=== PATIENT | female | born 1990 | race Caucasian/White ===

== ENCOUNTER 2025-02-07 07:52 | Outpatient (AMB) | payer OTHER, SELFPAY ==
--- OUTSIDE RECORDS SUMMARY | 2025-02-07 07:56 | XMS_ITS | Clinical Summary ---
Author Organization [address] Address [address] [place] [phone] Phone Care Team Providers Care Windows Migration Technician Name Role Phone Itzel Ford MD Primary Care Provider [phone] Allergies No known active allergies Medications Sronyx 0.1-20 mg-mcg per tabletIndications: Encounter for contraceptive management, unspecified type TAKE 1 TABLET BY MOUTH EVERY DAY 84 tablet 1 5 Active omeprazole OTC (PriLOSEC OTC) 20 mg EC tablet Take 1 tablet (20 mg total) by mouth 1 (one) time each day if needed. Do not crush, chew, or split. Active Active Problems Problem Noted Date Diagnosed Date Gestational hypertension 10/01/2023 Overview (10/06/2024): 09/30: 132/98 and 123/90 Pt scheduled for repeat at triage on 10/01, if elevated plan for prec labs Pre-ec precautions given Elevated bp on 11/03: prec labs good, pending ptn/creat ratio not yet done CBC, AST, ALT, creatinine and P/C ratio at diagnosis Repeat serum labs and P/C weekly Assess growth at time of diagnosis and Q4 weeks Weekly NST at diagnosis (if <32 weeks consider MFM consult) If blood pressures in severe range patient needs inpatient evaluation. Diagnose and treat as pre-eclampsia with severe features Deliver at 37 weeks BP check 1 week PP ASA 162 mg daily starting at 12 weeks in future pregnancies for pre-eclampsia prevention Order Referral to PCP 11/18 iol at 8am IUD strings lost 06/04/2023 Overview (10/06/2024): Pt had u/s in mar no iud present, no exray done once found out plan is xray after delivery Positive urine drug screen 05/21/2023 Overview (10/06/2024): +cocaine pos pn labs 08/05/2023 UDS neg Obesity affecting 05/20/2023 Overview (10/06/2024): BMI- 33.64 HgbA1C and 1 hour GTT at initial labs ASA 162mg at 12 weeks until delivery Detailed anatomy ultrasound Repeat GTT 24-28 weeks if early is normal BMI of 50 by 28wks transfer to [facility] DVT prophylaxis- Lovenox if CS and BMI >35 HSIL on Pap smear of cervix 04/02/2023 Overview (10/06/2024): Will schedule colpo per ASCCP guidelines-colpo scheduled for 06/11/23 Subclinical hyperthyroidism 09/24/2014 Overview (10/06/2024): TSH 0.35, nl t4 Consulted by dr morejon repeat lab 2nd trim 08/05/2023 TSH 1.49 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 Overview (10/06/2024): FOB declines testing Immunizations Immunization Administration Dates Next Due DTP 05/22/1996, 3,1991,08/27,1991 [id number] (Pentacel) 2mo to less than 5yo 1991,1991,1991 HPV, Quadrivalent 10/28/2007,06/27/2007,04/25/19 08 Hepatitis B Pediatric (Enger ix B; Recombivax HB) to less than 20 yo 07/07/1996,08/03/1995,04/14/1995 Influenza trivalent, 0.5mL, preservative free (Fluarix; FluLaval; Fluzone) ages 6mo and older (Afluria) 3 years and older 01/02/2013,02/17/2006 MMR, measles mumps and rubel la Live (Priorix; M-M-R II) 12mo and older 05/22/1996,07/30/1992 Meningococcal MCV4P 02/17/2006 OPV 05/22/1996, 3,1991,08/27,1991 PPD Test 06/11/2014 Td Tetanus diptheria (Tdvax) 7yo and older 11/17/2002 Tdap Tetanus diptheria acell ular pertussis (Boostrix; Adacel) 7yo and older 09/30/2023,02/15/2020,03/26/2015,02/01,02/17/2006 Varicella live (Varivax) 12m o and older 10/06/2010,01/22/2000 Surgical History Surgery Date Site/Laterality Comments SECTION 11/16/2023 PROCEDURE: HISTORICAL DELIVERY Medical History Medical History Date Comments Chlamydia contact, treated 2010,08/2012 DX:Ch lamydia contact, treated Subclinical hyperthyroidism DX:S ubclinical hyperthyroidism Cystic fibrosis carrier DX:Cysti c fibrosis carrier Family History Medical History Relation Name Comments Lymphoma Aunt maternal, decea sed Diabetes Father Hyperlipidemia Father Hypertension Father Other: Other Father Stent for block age in 2 arteries. Melanoma Maternal Grandfather living Alcohol abuse Maternal Grandmother Other cancer Mother Kidney, living Other cancer Mother's side multiple, grea t grandfather Other: heart issues Paternal Grandfather Diabetes Paternal Grandmother Breast cancer Neg Hx Cervical cancer Neg Hx Colon cancer Neg Hx Ovarian cancer Neg Hx Pancreatic cancer Neg Hx Prostate cancer Neg Hx Uterine cancer Neg Hx Relation Name Status Comments Aunt Brother Alive Father Alive Maternal Grandfather Alive Maternal Grandmother Mother Alive Mother's side Paternal Grandfather Paternal Grandmother Sister Alive Social History Tobacco Use Types Packs/Day Years Used Date Smoking Tobacco: Never Smokeless Tobacco: Never Tobacco Cessation:Counseling Given: Not Answered Alcohol Use Standard Drinks/Week Comments Not Currently 0 (1 standard drink = 0.6 oz pur e alcohol) Housing Instability Answer Date Recorde d Are you worried that in the next 2 months you may not have stable housing? No 10/08/2024 Food Access & Nutrition Answer Date Rec orded Do you have access to a vari ety of food including fruits and vegetables? Yes 10/08/2024 Access to Healthcare Answer Date Record ed Within the last 3 months, ho w many times did you visit the emergency department for your medical care? 0 10/08/2024 Health Literacy Answer Date Recorded How often do you need to hav e someone help you when you read instructions, pamphlets, or other written material from your doctor or pharmacy? Never 10/08/2024 Caregiver: How often do you need to have someone help you when you read instructions, pamphlets, or other written material from your doctor or pharmacy? Not on file 10/08/2024 Financial Risk Answer Date Recorded How hard is it for you to pa y for the very basics like food, housing, medical care, and air conditioning / heating? Not very hard 10/08/2024 Transportation Answer Date Recorded Has the lack of transportati on kept you from meetings, work, or from getting things needed for daily living? No Has the lack of transportati on kept you from medical appointments or from getting medications? No 10/08/2024 Social Isolation Answer Date Recorded How often do you feel lonely or isolated from those around you? Sometimes 10/08/2024 Food Risk Answer Date Recorded Within the past 12 months we worried whether our food would run out before we got money to buy more. Never true 10/08/2024 Within the past 12 months th e food we bought just didn't last and we didn't have money to get more. Never true 10/08/2024 Dependent Care Answer Date Recorded Do you need help finding or paying for care for your loved ones. For example, salesperson children's shoes or elderly care for an older adult? No 10/08/2024 Education Answer Date Recorded Do you think completing more education or training, like finishing a GED, going to college, or learning a trade, would be helpful for you? No 10/08/2024 Employment and Income Answer Date Recor ded During the last four weeks, have you been actively looking for work? No 10/08/2024 Living Situation Answer Date Recorded What is your living situation? Unrecognized valu e 10/08/2024 Comments No Sex and Gender Information Value Date Recorded Sex Assigned at Female 08/29/2024 2:04 PM EDT Legal Sex Female 3:07 PM EST Gender Identity Female 08/29/2024 2:04 PM EDT Sexual Orientation Straight 08/29/2024 2: 04 PM EDT Obstetrics History Para Term AB IAB SAB Ectopic Multiple Livin g Live Births 4 4 4 Date Outcome GA Total Labor Labor/2nd/3rd Weight Sex Type Anes PTL Angelique A1 A5 Name Clin Term Term Term Term Last Filed Vital Signs Vital Sign Reading Time Taken Comments Blood Pressure 120/87 10/09/2024 2:05 PM EDT aut o Pulse 89 10/09/2024 2:05 PM EDT Temperature - - Respiratory Rate - - Oxygen Saturation - - Inhaled Oxygen Concentration - - Weight 96.4 kg (212 lb 9.6 oz) 10/09/2024 2:05 P M EDT Height 162.6 cm (5' 4 ) 10/09/2024 2:05 PM EDT Body Mass Index 36.49 10/09/2024 2:05 PM EDT Plan of Treatment Upcoming Encounters Date Type Department Care Team (Late st Contact Info) Description 03/26/2025 9:00 AM EST [facility] [address], [place] [phone] Itzel Ford MD [address] [place] [address] Health Maintenance Due Date Last Done Comments COVID-19 Vaccine ( season) 2024 09/04/2020, 08/14/2020 Influenza Vaccine (#1) 2024 , 01/02/2013, 02/17/2006 Social Influencers of Health Screening 10/08/2025 10/08/2024 Hypertension/CHF/CAD Annual BMP Blood Test 10/09/2025 10/09/2024 Cervical Cancer Screening: Pap Smear 03/26/2026 03/26/2023, 07/08/2018 Cholesterol Screening (Lipid Panel) 10/09/2029 10/09/2024, 09/17/2014 DTaP,Tdap,and Td Vaccines (12 - Td or Tdap) 09/29/2033 09/30/2023, 02/15/2020, 03/26/2015, Additional history exists RSV Immunization Adult Patients (1 - 1-dose 75+ series) 2066 HIB Vaccines Aged Out 1991, 10/13, 1991, Additional history exists No longer eligible based on patient's age to complete this topic IPV Vaccines Completed 05/22/1996, 10/13, 1991, Additional history exists MMR Vaccines Completed 05/22/1996, 07/30/1992 Hepatitis B Vaccines Completed 07/07/1996, 08/03/1995, 04/14/1995 Meningococcal ACWY Vaccine Aged Out 02/17/2006 N o longer eligible based on patient's age to complete this topic HPV Vaccines Completed 10/28/2007, 06/13, 04/25/2007 Varicella Vaccines Completed 10/06/2010, 01/22/2000 Depression Screening Completed 10/08/2024 Hepatitis C Screening Completed 10/09/2024 HIV Screening Discontinued Hepatitis A Vaccines Aged Out No long er eligible based on patient's age to complete this topic Meningococcal B Vaccine Aged Out No l onger eligible based on patient's age to complete this topic Pneumococcal Vaccine: Pediatrics (0 to 5 Years) and At-Risk Patients (6 to 49 Years) Aged Out No longer eligible based on patient's age to complete this topic RSV Immunization Patients Under 20 months Aged Out No longer eligible based on patient's age to complete this topic Procedures Procedure Name Priority Date/Time Associated Diagnosis Comments HEPATITIS C ANTIBODY Routine 10/09/2024 3:16 PM EDT Need for hepatitis C screening test COMPREHENSIVE METABOLIC PANEL Routine 10/09/2024 3:16 PM EDT Obesity (BMI 35.0-39.9 without comorbidity) Attention and concentration deficit LIPID PANEL WITH REFLEX TO DIRECT LDL Routine 10/09/2024 3:16 PM EDT Obesity (BMI 35.0-39.9 without comorbidity) PAP SMEAR Routine 03/26/2023 from Last 3 Months or Most Recently Relevant to Health Maintenance Results * Hepatitis C antibody (10/09/2024 3:16 PM EDT) [facility] Hepatitis C Antibody Negative Negative LAB CHEMISTRY METHOD 10/09/2024 9:34 PM EDT [facility] Blood Venous blood specimen / Unknown Venipuncture / Unknown 10/09/2024 3:16 PM EDT 10/09/2024 3:16 PM EDT us Itzel Ford MD LAB BLOOD ORDERABLES Final Res ult [facility] [address] [place] [address], [place] [phone] * (ABNORMAL) Lipid panel with reflex to direct LDL (10/09/2024 3:16 PM EDT) [facility] Cholesterol 192 0 - 200 mg/dL LAB CHEMISTRY METHOD 10/09/2024 7:44 PM EDT [facility] Triglycerides 340(H) 0 - 150 mg/dL LAB CHEMISTRY METHOD 10/09/2024 7:44 PM EDT [facility] HDL 32(L) >=40 mg/dL LAB CHEMISTRY METHOD 10/09/2024 7:44 PM EDT [facility] LDL Calculated 92 0 - 100 mg/dL LAB CHEMISTRY METHOD 10/09/2024 7:44 PM EDT [facility] VLDL Cholesterol Javad 68 mg/dL LAB CHEMISTRY METHOD 10/09/2024 7:44 PM EDT [facility] Non HDL Chol. (LDL+VLDL) 160(H) <145 mg/dL LAB CHEMISTRY METHOD 10/09/2024 7:44 PM EDT [facility] Chol/HDL Ratio 6.0(H) 0.0 - 4.4 LAB CHEMISTRY METHOD 10/09/2024 7:44 PM [facility] Blood Venous blood specimen / Unknown Venipuncture / Unknown 10/09/2024 3:16 PM EDT 10/09/2024 3:16 PM EDT us Itzel Ford MD LAB BLOOD ORDERABLES Final Res ult [facility] [address] [place] [address], [place] [phone] * Comprehensive metabolic panel (10/09/2024 3:16 PM EDT) Sodium 136 133 - 145 mmol/L LAB CHEMISTRY METHOD 10/09/2024 7:44 PM [facility] Potassium 4.4 3.5 - 5.5 mmol/L LAB CHEMISTRY METHOD 10/09/2024 7:44 PM [facility] Chloride 108 96 - 110 mmol/L LAB CHEMISTRY METHOD 10/09/2024 7:44 PM [facility] CO2 23 21 - 32 mmol/L LAB CHEMISTRY METHOD 10/09/2024 7:44 PM [facility] Anion Gap 5 3 - 11 LAB CHEMISTRY METHOD 10/09/2024 7:44 PM [facility] Glucose 89 70 - 100 mg/dL LAB CHEMISTRY METHOD 10/09/2024 7:44 PM [facility] BUN 9 5 - 25 mg/dL LAB CHEMISTRY METHOD 10/09/2024 7:44 PM [facility] Creatinine 0.87 0.50 - 1.10 mg/dL LAB CHEMISTRY METHOD 10/09/2024 7:44 PM [facility] eGFR 90 >=60 mL/min/1. 73m2 LAB CHEMISTRY METHOD 10/09/2024 7:44 PM [facility] Comment:Calculation based on the Chronic Kidney Disease Epidemiology Collaboration (CKD-EPI) equation refit without adjustment for race. BUN/Creatinine Ratio 10.3 LAB CHEMISTRY METHOD 10/09/2024 7:44 PM EDT [facility] Calcium 9.5 8.5 - 10.5 mg/dL LAB CHEMISTRY METHOD 10/09/2024 7:44 PM [facility] AST (SGOT) 16 10 - 42 unit/L LAB CHEMISTRY METHOD 10/09/2024 7:44 PM [facility] ALT (SGPT) 21 10 - 60 unit/L LAB CHEMISTRY METHOD 10/09/2024 7:44 PM [facility] Alkaline Phosphatase 71 42 - 121 unit/L LAB CHEMISTRY METHOD 10/09/2024 7:44 PM [facility] Total Protein 7.5 6.0 - 8.0 g/dL LAB CHEMISTRY METHOD 10/09/2024 7:44 PM [facility] Albumin 3.9 3.2 - 5.0 g/dL LAB CHEMISTRY METHOD 10/09/2024 7:44 PM [facility] Total Bilirubin 0.3 0.0 - 1.4 mg/dL LAB CHEMISTRY METHOD 10/09/2024 7:44 PM [facility] Blood Venous blood specimen / Unknown Venipuncture / Unknown 10/09/2024 3:16 PM EDT 10/09/2024 3:16 PM EDT us Itzel Ford MD LAB BLOOD ORDERABLES Final Res ult [facility] [address] [place] [address], * Pap smear (03/26/2023) 03/26/2023 Narrative HISTORICAL TESTING LAB RESULTING AGENCY - 04/02/2023 4:20 PM EST [id number] THINPREP PAP, IMAGED: HIGH-GRADE SQUAMOUS INTRAEPITHELIAL LESION (HSIL) . FLORES REIS M.D. , PATHOLOGIST (CASE ELECTRONICALLY SIGNED 04 02 2023) RESULT OF APTIMA HIGH RISK HPV ASSAY: HIGH RISK HPV: POSITIVE (SEROTYPES 16,18,31,33,35,39,45,51,52,56,58,59,66,68) RESULTS OF APTIMA HPV 16 AND 18/45 GENOTYPE ASSAY: HPV 16: NEGATIVE HPV 18/45: NEGATIVE COMPLETED ON 2023-03-30 ADEQUACY: SATISFACTORY ENDOCERVICAL/TRANSFORMATION ZONE COMPONENT PRESENT. SOURCE: THINPREP PAP HPV ANY DX: REFLEX 16 AND 18, CERVICAL, IMAGED CLINICAL INFORMATION: HPV ANY DIAGNOSIS. HORMONES IUD, PAP HX NEGATIVE, [Z01.419] Mayra Dexter [facility] CYTOLOGY ORDERABLES Fin al Result HISTORICAL TESTING LAB RESULTING AGENCY from Last 3 Months or Most Recently Relevant to Health Maintenance Insurance [facility] Care Teams Windows Migration Technician Relationship Specialty Start Date End Date Itzel Ford MD [address], [place] PCP - General Internal Medicine 08/29/24
--- NOTE | 2025-02-07 09:47 | MHC.OFFVISWM ---
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 BMI 35.9: Details: Start time: 9.33am, End time: 10.18am ?I spent 40 minutes speaking with the patient on the phone plus an additional 5 minutes reviewing and updating records for a total of 45 minutes HPI Comments Details: Previous weight loss efforts: (self diet and exercise), Keto diet Wakes up: 8am, Sleeps: 10pm Breakfast: skips Lunch: 11am-12pm (rice pack with tuna), junk food Dinner: 6pm (chicken, steak, vegetables, potatoes Snacks: 10am (bread, or fruit snack), 4pm (ice cream, chips), 8pm (same) Exercise: Gym daily Beverages: Coffee: occasionally, Tea: none, Soda: none, Energy Drink: Red Bull (regular: 1/d), Juice: Lemonade, Ice Tea, ETOH: none PFSH Medical History (Updated 02/07/25 @ 10:13 by Terry Tracy MD) Hypertension GERD (gastroesophageal reflux disease) BMI 35.0-35.9,adult Obesity Surgical History (Updated 11/23/24 @ 08:33 by Nini Isaac CMA) Hx of section Family History (Updated 11/23/24 @ 08:24 by Nini Isaac CMA) Mother FHx: kidney cancer Father Diabetes Hypertension High cholesterol H/O heart artery stent Son No problems noted. Son No problems noted. Son Asthma Daughter No problems noted. Social History (Updated 11/23/24 @ 08:24 by Nini Isaac CMA) Alcohol intake: never Patient Tobacco Use Status: Never used Tobacco Telehealth Telehealth Telehealth Platform: Telephone Location of provider rendering services: practice address Location of patient: address on file Patient Identification confirmed using: Name, : Yes Telehealth method: voice only Patient verbally consented to treatment: Yes Patient verbally consented to billing insurance company: Yes Patient informed of any privacy concerns related to visit: Yes Minutes spent on Phone/Video with Pt.: 45 Assessment & Plan Assessment & Plan (1) Obesity: Code(s): E66.9 - Obesity, unspecified Category: Medical Qualifiers: Obesity type: due to excess calories Obesity classification: adult class 2 (BMI 35 - 39.9) Serious obesity comorbidity presence: with serious comorbidity Body mass index: BMI 35.0-35.9 Qualified Code(s): E66.812 - Obesity, class 2; Z68.35 - Body mass index [BMI] 35.0-35.9, adult Plan: 1. As we discussed, based on your present BMI you are approximately 60lbs overweight. In my opinion, for any weight loss strategy to be successful should have a high probability to help you lose at least 50lbs out of 60lbs of the extra weight you carry. We discussed in detail the available therapeutic options: 1) our lifestyle intervention program that has an average weight loss of 10% in 3 months.?Some patients continue it for longer and have lost over 50lbs but this is not common. Our lifestyle program can be provided by me. I will provide you with a link to use the christiano if you choose to do so. We use protein shakes and protein bars to replace some of the meals of the day and cover your appetite better. We will decide together the exact combination. 2) Weight loss medications: these can be used in conjunction with our lifestyle program or you may choose to use them without following a lifestyle program from my program but your own. I will try the Zepbound injection (see below). There is also a self pay for the weight loss injections (if insurance does not approve) and the cost is $249 for the first month and $499 for any other month thereafter. These payments go to the drug company directly and not to us. As we discussed, this is not a termite exterminator helper solution, as most patients put all the weight back once they are off the medication. 3) We also discussed about the lap sleeve gastrectomy. In my opinion this is the best option to solve your problem based on your situation and should be used in conjunction with the two previous options. A good strategy to make this decision to proceed with surgery, as soon as you achieve a specific goal with the lifestyle intervention and medication options: to lose least 10% of your initial weight in 3 months. ?I emphasized the importance of close follow-up, adherence to instructions and good communication. The surgery does not replace the need to change your lifestlyle which is the cause of the obesity problem. The surgery provides the motivation to try again to change your lifestyle, it reduces the appetite and make the transition to a better lifestyle easier and doubles the amount of weight you would lose compared to doing the lifestyle change without the surgery. You will need to be on a liquid diet with protein shakes for 2 weeks before surgery to maximize weight loss and boost your nutritional status to recover better from surgery and also for the first two weeks after surgery to let the stomach heal before we introduce other foods. After the first 2 weeks we will introduce protein bars and soft foods like scrambled eggs, cottage cheese and yogurt and after the 6th week will introduce meat, fish and cooked vegetables in small amounts. Over time you should be able to eat everything in small amounts. Side effects like nausea, vomiting, heartburn or abdominal pain are not common in the practice unless you are not following in the practice. This operation requires lifetime commitment to following in our practice and communication with me. You will much less weight and experience side effects if you don?t communicate or not following in the practice. Complications are rare and in our practice is about 1/10 of the national average. 2. I ordered a medication to help you with the weight loss which is called Zepbound. My office will try to authorize it. Please let me know when you receive it so I can give you a meal and exercise plan. Common side effects include nausea, vomiting, constipation, diarrhea, abdominal pain. Please let me know if you develop any of these symptoms. 3. Buy a body composition scale as we disucssed. Medications: New tirzepatide (weight loss) (Zepbound) for 4 weeks 2.5 mg (0.5 mL) subcut QWEEK 2 mL 0RF E66.9 - Obesity, unspecified, I10 - Essential (primary) hypertension, Z68.35 - Body mass index [BMI] 35.0-35.9, adult
[2025-02-07 09:56] VITALS: BMI 35.9
== END 2025-02-07 10:20 | disposition home or self-care (01) ==
LOC: HO.HBS 07:52
PROVIDERS: PCP Internal Medicine; Visit Provider Surgery
DX: E66.812 Obesity, class 2 (principal); Z68.35 Body mass index [BMI] 35.0-35.9, adult
CPT/HCPCS: 99204